=== PATIENT | female | born 1995 | race Caucasian/White ===

== ENCOUNTER 2024-10-09 12:07 | Emergency (ER) | payer MEDICAID ==
[~2024-10-09] VITALS: Ht 160 cm; Wt 65.0 kg
[2024-10-09 12:11] VITALS: O2SAT 100
[2024-10-09] MEDS: LIDOCAINE 5% PATCH TOP SCH (13:02)
[2024-10-09] MEDS: ACETAMINOPHEN 325MG TABLET PO ONE (13:02)
[2024-10-09] MEDS ORDERED: LIDO-53 TP (13:22)
[2024-10-09 13:44] VITALS: BP 116/71; PULSE 70; RESP 20; TEMP 37.2; O2SAT 100
== END 2024-10-09 13:56 | disposition home or self-care (01) ==
LOC: ER 12:07
DX: M54.2 Cervicalgia (principal); F41.9 Anxiety disorder, unspecified
CPT/HCPCS: 99283